=== PATIENT | male | born 1935 | race Caucasian/White ===

== ENCOUNTER → 2018-01-14 | Outpatient (CLI) | payer OTHER, BC | LOC: FIMAGING 10:34 → EDSTATUS 10:40 | PROVIDERS: ATTEND Family Medicine | DX: R07.9 Chest pain, unspecified (principal); I10 Essential (primary) hypertension; M54.9 Dorsalgia, unspecified ==

== ENCOUNTER → 2018-10-31 | Outpatient (CLI) | payer OTHER | LOC: BMCIMAGING 09:35 | PROVIDERS: ATTEND Family Medicine | DX: I51.7 Cardiomegaly (principal); J40 Bronchitis, not specified as acute or chronic ==